=== PATIENT | male | born 1970 | race Two or more races ===

== ENCOUNTER 2020-07-15 19:48 | Emergency (ER) | payer MEDICAID, OTHER ==
[~2020-07-15] VITALS: Ht 167.6 cm; Wt 86.2 kg
[2020-07-16 01:30] VITALS: BP 125/84
== END 2020-07-16 03:59 | disposition left against medical advice (07) ==
LOC: ER 19:48
DX: R11.0 Nausea (principal); R51.9 Headache, unspecified; Z53.21 Procedure and treatment not carried out due to patient leaving prior to being seen by health care provider

== ENCOUNTER 2021-05-08 08:28 | Emergency (ER) | payer MEDICAID ==
[~2021-05-08] VITALS: Ht 172.7 cm; Wt 81.6 kg
[2021-05-08] MEDS ORDERED: ASPirin 81 mg TAB PO ONE (09:00)
[2021-05-08 09:20] LABS: Hematocrit 46.6 % (41.0-53.0); Hemoglobin 15.8 g/dL (13.5-17.5); Mean Corpuscular Hemoglobin 30.2 pg (28.0-32.0); Mean Corpuscular Volume 88.9 fL (80.0-100.0); Red Blood Cells 5.24 10^6/uL (4.5-5.90); Red Cell Distribution Width 14.6 % (11.8-14.3); White Blood Cell 3.7 10^3/uL (4.4-10.8)
[2021-05-08 09:21] LABS: Band Neutrophils % (manual) 0; Basophils % (manual) 0 (0.0-2.0); Blast Cells 0; Eosinophils % (manual) 0 (0-7); Metamyelocytes % 0; Myelocytes % 0; Promyelocytes % 0; Reactive Lymphocytes 0
[2021-05-08 09:33] VITALS: BP 117/75
[2021-05-08 09:54] LABS: Albumin 3.8 g/dL (3.4-5.0); Potassium 3.9 mmol/L (3.5-5.1)
[2021-05-08 09:57] LABS: BUN/Creatinine Ratio 17.6
[2021-05-08 10:03] LABS: Bilirubin, Total 0.4 mg/dL (0.2-1.0); Total Protein 7.1 g/dL (6.4-8.2)
[2021-05-08 10:11] LABS: Lymphocytes % (manual) 22 (10.0-50.0)
[2021-05-08 10:12] LABS: Monocytes % (manual) 18 (0-12)
[2021-05-08] MEDS ORDERED: IBU600T PO (10:56)
== END 2021-05-08 10:57 | disposition home or self-care (01) ==
LOC: ER 08:28
DX: R07.89 Other chest pain (principal)
CPT/HCPCS: 36415; 80053; 84443; 84484; 85007; 85027; 93005